=== PATIENT | female | born 1975 | race Two or more races ===

== ENCOUNTER 2024-10-01 18:00 | Emergency (ER) | payer MEDICAID, SELFPAY ==
[2024-10-01 18:30] VITALS: BP 169/99; PULSE 68; RESP 18; TEMP 36.5; O2SAT 98
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
[2024-10-01] MEDS: KETOROLAC INJ 60 MG/2 ML VIAL 30 MG IM (19:32)
[2024-10-01] MEDS: CYCLObenzaPRINE 5 MG TABLET PO (19:33)
[2024-10-01 19:57] VITALS: RESP 18
== END 2024-10-01 19:58 | disposition home or self-care (01) ==
PROVIDERS: Emergency Provider Emergency Medicine
DX: S13.4XXA Sprain of ligaments of cervical spine, initial encounter (principal); M47.812 Spondylosis without myelopathy or radiculopathy, cervical region; V49.50XA Passenger injured in collision with unspecified motor vehicles in traffic accident, initial encounter; Y92.481 Parking lot as the place of occurrence of the external cause
CPT/HCPCS: 72040; 96372; 99283; J1885; A9270

== ENCOUNTER 2025-06-04 10:17 | Emergency (ER) | payer MEDICAID, SELFPAY ==
[2025-06-04 10:19] VITALS: BP 83/50; PULSE 72; RESP 21; TEMP 36.9; O2SAT 94
--- NOTE | 2025-06-04 10:21 | EDNOTE_ITS ---
ED Allergic Reaction RME/HPI General Chief complaint: Allergic Reaction Stated complaint: Allergic reaction to keflex, low bp Time Seen by Provider: 06/04/25 10:29 Arrival date/time: 06/04/25 10:17 Limitations: no limitations RME / HPI RME / HPI narrative: 49 year old female with history of hypertension, diabetes, hyperlipidemia presents to the ED brought from the labor and delivery unit within this facility for evaluation of dizziness and near syncopal episode today. Patient states she was visiting her daughter who delivered yesterday when she suddenly began to feel dizzy, near syncope, and had an episode of vomiting. Followed by a diffuse rash. States symptoms began shortly after taking Keflex at 8am today, that was prescribed to her by PCP for tooth infection this morning. Denies having eaten this morning. Denies feeling short of breath, difficulty breathing, or mouth swelling. Denies losing consciousness. Per RN, the patients BG was 78 and given orange juice. Patient was also noted to be hypotensive, SBP in the 80s. Related Data Previous Rx's ?Medication ?Instructions ?Recorded erythromycin 5 mg/gram (0.5 %) eye 1 appl Right eye Q2 -4H WHILE AWAKE 06/03/17 ointment PRN AD #5 ea azithromycin 500 mg tablet See Rx Instructions PO .COM PLEX #6 02/12/19 tabs ibuprofen 800 mg tablet 800 mg PO TID PRN pain #30 t abs 01/24/24 cyclobenzaprine 5 mg tablet 5 mg PO TID PRN muscle spa sm #30 10/01/24 tabs ibuprofen 800 mg tablet 800 mg PO Q8H PRN pain #30 t abs 10/01/24 epinephrine 0.3 mg/0.3 mL 0.3 ml subcut .every 3-5 min s PRN 06/04/25 injection, auto-injector (EpiPen hypersensitivity reac tion #2 ea 2-Isaías) Allergies Allergy/AdvReac Type Severity Reaction Status Date / Time cephalexin Allergy Severe rash Verified 06/04/25 10:30 vomitting Penicillins Allergy Severe Anaphylaxis Verified 06/04/25 10:30 Review of Systems Review of Systems Systems Reviewed: All systems reviewed, normal except as documented Past Medical History Past Medical History CARDIAC: Positive Hypercholesterolemia and Hypertension ENDOCRINE: Positive Diabetes Mellitus Type 2 (hasn't taken medication x 1 month) Social History SMOKING STATUS: Never smoker ED Exam General Limitations: Present no limitations General appearance: Present alert and other (Mild distress) Head Head exam: Present atraumatic and other (Diffuse erythematous rash appreciated to patient's face bilateral upper extremities) Eye Eye exam: Present normal appearance, PERRL and EOMI ENT ENT exam: Present normal exam, normal oropharynx and other (Dry mucous membranes) Neck Neck exam: Present normal inspection, full ROM, trachea midline and other (No stridor); Absent tenderness Chest Chest inspection: Present normal inspection and symmetric chest wall rise Respiratory Respiratory exam: Present normal lung sounds bilaterally; Absent respiratory distress, wheezes or stridor Cardiovascular Cardiovascular exam: Present regular rate and normal rhythm Abdominal Exam Abdominal exam: Present soft; Absent distention, tenderness, guarding, rebound or rigidity Extremities Exam Extremities exam: Present other (Maculopapular erythematous rash bilateral upper extremities) Neurological Exam Neurological exam: Present alert, oriented X3, CN II-XII intact and other (No focal neurodeficits) Skin Skin exam: Present warm, dry and other (Diffuse maculopapular erythematous rash bilateral upper extremities, erythema face) Course Quality Measures none Orders Category Date Time Status EKG (ED ONLY) *Do not use* NOW Care 06/04/25 10:33 Completed EKG (ED Only) Stat Exams 06/04/25 10:32 Draft CBC Stat Lab 06/04/25 10:41 Completed CMP [Comprehensive Metabolic Panel] Stat Lab 06/04/25 10:41 Completed Drug Screen,Urine Stat Lab 06/04/25 12:08 Completed Free T4 (Free Thyroxine) Stat Lab 06/04/25 10:41 Completed HCG,Qualitative Serum Stat Lab 06/04/25 10:41 Completed TSH [Thyroid Stimulating Hormone] Stat Lab 06/04/25 10:41 Completed Troponin I Stat Lab 06/04/25 10:41 Completed UA, C/S IF [Urinalysis, C/S if Indicated] Stat Lab 06/04/25 12:08 Completed DiphenhydrAMINE INJ [Benadryl Inj] Med 06/04/25 10:22 Discontinued 25 mg IVP X1 ONE EPINEPHrine Inj [Adrenalin Inj] Med 06/04/25 10:22 Discontinued 0.3 mg IM X1 ONE Famotidine Inj [Pepcid Inj] Med 06/04/25 10:23 Discontinued 20 mg IVP X1 ONE MethylPREDNISolone.* [SoluMEDROL Inj] Med 06/04/25 10:22 Discontinued 125 mg IVP X1 ONE Ringers Lactated 1000 ml [Lactated Ringers] 1,000 ml Med 06/04/25 10:23 Discontinued IV 999 mls/hr Vital Signs Vital signs: Vital Signs Temperature 98.4 F 06/04/25 10:19 Pulse Rate 72 06/04/25 10:19 Respiratory Rate 21 H 06/04/25 10:19 Blood Pressure 83/50 L 06/04/25 10:19 Pulse Oximetry (%) 94 L 06/04/25 10:19 Oxygen Delivery Method Room Air 06/04/25 10:19 Pulse ox is 94% on room air which is adequate. Allergic Reaction MDM Narrative MDM Narrative:: Patient is a 49-year-old female medical history notable for hypertension, at the Emergency Department after having had a presyncopal episode, rash, nausea, vomiting and low blood pressure after taking cephalexin earlier today. Vital signs and exam as listed. Concern for anaphylactoid reaction, anaphylaxis, severe allergic reaction. Patient without any airway edema, tongue not elevated, uvula midline, no neck stridor. Patient does have a maculopapular erythematous rash on her upper extremities, patient does have redness to her face. Provided patient with epinephrine, steroids, and antihistamines. Also provided fluids. Also concern for presyncope. Concern for ACS arrhythmia electrolyte abnormality metabolic disturbance thyroid dysfunction among others. Ordered labs EKG. EKG performed today at 1027 in the morning notable for sinus rhythm, heart rate 67, normal intervals, nonspecific T wave changes, not a cardiac alert Labs without any acute hematologic or significant metabolic abnormality, thyroid studies unremarkable, troponin not elevated, EKG without evidence of ischemia or arrhythmia, patient is not urinalysis without evidence of infection. Drug screen negative. On multiple reevaluations patient hemodynamically stable not distress, symptoms completely resolved will discharge home close return precautions follow-up with your primary care doctor. Also advised her not to take any penicillin medications or any antibiotics related to penicillin as she has had 2 severe allergic reactions to the penicillin family. Patient will follow-up with an emergency specialist. Patient data External records reviewed:: [facility] previous records Clinical information provided by:: patient Social determinants that could affect healthcare access:: none Patient has the following chronic illnesses:: See MDM How is presenting disease/condition affected by chronic disease/condition?: uneffected by Evaluation data The following diagnostics were reviewed and interpreted by me:: lab results and EKG tracing(s) Lab and/or radiology exams considered but not ordered:: None Interpretation Summary: See MDM Medications / Prescriptions Medications or Prescriptions considered but not ordered:: None Medication administrations:: Medication Administration History Discontinued Medications Diphenhydramine HCl (Diphenhydramine Inj 50 Mg/Ml Vial) 25 mg IVP X1 ONE Stop: 06/04/25 10:23 Last Admin: 06/04/25 10:28 Dose: 25 mg Documented By: DANNY Epinephrine HCl (Epinephrine Inj 1 Mg/Ml Amp) 0.3 mg IM X1 ONE Stop: 06/04/25 10:23 Last Admin: 06/04/25 10:30 Dose: 0.3 mg Documented By: DANNY Famotidine (Famotidine Inj 10 Mg/Ml Vial 2 Ml) 20 mg IVP X1 ONE Stop: 06/04/25 10:24 Last Admin: 06/04/25 10:30 Dose: 20 mg Documented By: DANNY Lactated Ringer's (Lactated Ringers) 1,000 mls @ 999 mls/hr IV .Q1H1M ONE Stop: 06/04/25 11:23 Last Infusion: 06/04/25 13:36 Dose: Infused Documented By: Admin: 06/04/25 10:31 Dose: 999 mls/hr Documented By: DANNY Methylprednisolone Sodium Succinate (Methylprednisolone Sod Succ 62.5 Mg/Ml 2ml Vial) 125 mg IVP X1 ONE Stop: 06/04/25 10:23 Last Admin: 06/04/25 10:27 Dose: 125 mg Documented By: DANNY See above Consultations Consultation(s) initiated? (list below): No Diagnosis Most likely diagnosis given after review of the tests above:: Allergic reaction caused by a drug Anaphylaxis Admission Indicated Admission indicated?: not indicated Admission Request Was there a request for admission?: No Disposition Plan Disposition Plan: Discharge Discharge Attestation Discharge Attestation: The patient and all family members were given an opportunity to ask questions and understood the discharge instructions. Discharge instructions specifically effects, indications for sooner follow up or return to the emergency department, and the expected course of current diagnosis. Patient condition: Stable Critical Care Time Critical Care Time Critical Care Time: Yes Total Critical Care Time (min.): 35 Attestation: Total critical care time: Approximately?36?minutes Due to a high probability of clinically significant, life threatening deterioration, the patient required my highest level of preparedness to intervene emergently and I personally spent this critical care time directly and personally managing the patient. This critical care time included obtaining a history; examining the patient; pulse oximetry; ordering and review of studies; arranging urgent treatment with development of a management plan; evaluation of patient's response to treatment; frequent reassessment; and, discussions with other providers. This critical care time was performed to assess and manage the high probability of imminent, life-threatening deterioration that could result in multi-organ failure. It was exclusive of separately billable procedures and treating other patients and teaching time. Please see MDM section and the rest of the note for further information on patient assessment and treatment. Discharge Plan Plan Patient Disposition: HOME (Self Care) Prescriptions/Referrals Prescriptions/Med Rec: New epinephrine [EpiPen 2-Isaías] 0.3 mg/0.3 mL auto-injector 0.3 ml subcut .every 3-5 mins PRN (Reason: hypersensitivity reaction) Qty: 2 0RF No Action erythromycin 1 GM ointment 1 appl Right eye Q2-4H WHILE AWAKE PRN (Reason: AD) Qty: 5 1RF azithromycin 500 mg tablet See Rx Instructions .ROUTE .COMPLEX Qty: 6 0RF Rx Instructions: take 500 mg today (day 1), then 250 mg for 4 days (days 2-5) cyclobenzaprine 5 mg tablet 5 mg PO TID PRN (Reason: muscle spasm) Qty: 30 0RF ibuprofen 800 mg tablet 800 mg PO Q8H PRN (Reason: pain) Qty: 30 0RF ibuprofen 800 mg tablet 800 mg PO TID PRN (Reason: pain) Qty: 30 0RF Problem List Clinical Impression: Allergic reaction caused by a drug, Anaphylaxis Patient/Caregiver Discharge Instructions Education Materials: ED Using an Injection Pen Additional Instructions: Por favor hacer trent con javier medico de cabecera esta semana. No nigel medi camentos de la milagros de penicilinas, porque usted rey tenido dos reacciones severas a antibioticos de esta milagros. Hacer trent con un especialista de alergias. Print Language: Lithuanian Stand Alone Forms: Carola Award Info., Patient Portal Info Letter
[2025-06-04 10:26] VITALS: BMI 40.2
[2025-06-04] MEDS: MethylPREDNISolone SOD SUCC 62.5 MG/ML 2ML VIAL 125 MG IVP (10:27)
[2025-06-04 10:30] VITALS: BP 83/54; PULSE 67
[2025-06-04] MEDS: EPINEPHrine INJ 1 MG/ML AMP 0.3 MG IM (10:30)
[2025-06-04] MEDS: FAMOTIDINE INJ 10 MG/ML VIAL 2 ML 20 MG IVP (10:30)
[2025-06-04] MEDS: RINGERS LACTATED 1000 ML 1,000 ML 999 ML IV (10:31)
--- NOTE | 2025-06-04 10:32 | EKG_ITS ---
[facility] Test Date: 2025-06-04 Pat Name: TONY ECHOLS Department: Room: - Gender: Female Director Of Teaching And Learning: : 1975 Requested By: Bárbara Jc Order Number: [id number] Reading MD: Bárbara Jc Measurements Intervals [place] Rate: 67 P: 52 MO: 154 QRS: 75 QRSD: 94 T: 39 QT: 421 QTc: 446 Interpretive Statements SINUS RHYTHM LOW QRS VOLTAGE IN PRECORDIAL LEADS [QRS DEFLECTION < 1.0 mV IN CHEST LEADS] POSSIBLE ANTERIOR MYOCARDIAL INFARCTION , PROBABLY OLD [30 ms Q WAVE IN V3/V4, OR R < 0.2 mV IN V4] No previous ECG available for comparison /store/S0/[id number]
[2025-06-04 10:48] LABS: Basophils # (Auto) 0.0 Thou/mm3 (0.0-0.2); Basophils % (Auto) 0 % (0-2.5); Eosinophils # (Auto) 0.0 Thou/mm3 (0.0-0.5); Eosinophils % (Auto) 0 % (0-10); Hematocrit 39.3 % (36.0-46.0); Hemoglobin 13.2 g/dL (12.0-16.0); Immature Granulocytes Auto 0.03 Thou/mm3 (0.00-0.00); Lymphocytes # (Auto) 4.0 Thou/mm3 (1.0-4.8); Lymphocytes % (Auto) 49 % (10-50); Mean Corpuscular HGB Conc 33.6 g/dl (31.0-37.0); Mean Corpuscular Hemoglobin 29.2 pg (25.0-35.0); Mean Corpuscular Volume 87 fL (80-100); Monocytes # (Auto) 0.3 Thou/mm3 (0.0-0.8); Monocytes % (Auto) 4 % (0-12); Neutrophils # (Auto) 3.8 Thou/mm3 (1.8-7.7); Neutrophils % (Auto) 46 % (37-80); Nucleated Red Blood Cell # 0.00 Thou/mm3 (0.00-0.00); Nucleated Red Blood Cell % 0 /100 WBC (0); Platelet Count 150 Thou/mm3 (140-440); RDW Standard Deviation 37.9 fL (36.4-46.3); Red Blood Count 4.52 Miln/mm3 (4.00-5.20); White Blood Count 8.3 Thou/mm3 (3.6-11.0)
[2025-06-04 10:55] VITALS: BP 116/53; PULSE 83; RESP 18; O2SAT 100
[2025-06-04 11:22] LABS: HCG,Qualitative Serum Negative
[2025-06-04 11:28] LABS: Alanine Aminotransferase < 7 U/L (10-49); Albumin, Serum 4.1 gm/dL (3.5-5.0); Albumin/Globulin Ratio 1.9 (1.2-2.2); Anion Gap 9 (7-16); Aspartate Amino Transferase 18 U/L (0-34); BUN/Creatinine Ratio 14 Ratio (12-20); Bilirubin,Total 0.5 mg/dL (0.3-1.2); Blood Urea Nitrogen 15 mg/dL (9-23); Calcium 9.2 mg/dL (8.3-10.6); Calcium (Corrected) 9.2 mg/dL (8.5-10.1); Carbon Dioxide 25.8 mMol/L (20.0-31.0); Chloride 105 mMol/L (98-107); Creatinine (Component) 1.1 mg/dL (0.6-1.3); Estimated Creatinine Clearance 64.6 mL/min (>60); Free T4 (Free Thyroxine) 1.08 ng/dL (0.89-1.76); Globulin 2.2 gm/dL (2.3-3.5); Glucose 174 mg/dL (74-106); Osmolality,Calculated 284 (275-295); Potassium 4.0 mMol/L (3.4-5.1); Sodium 140 mMol/L (136-145); Thyroid Stimulating Hormone 3.49 uIU/mL (0.55-4.78); Total Protein 6.3 gm/dL (5.7-8.2); Troponin I < 0.002 ng/mL (0.0-0.045); eGFR > 60 See Note
[2025-06-04 11:46] LABS: Alkaline Phosphatase 61 U/L (46-116)
[2025-06-04 12:34] LABS: Collection Type, Urine Clean Catch
[2025-06-04 12:45] LABS: Amphetamine/Methamp Scrn,U Negative (Negative); Barbiturate Screen,Urine Negative (Negative); Benzodiazepines Screen,Urine Negative (Negative); Benzoylecgonine Screen, Ur Negative (Negative); Fentanyl Screen,Urine Negative (Negative); Opiate Screen,Urine Negative (Negative); THC Screen,Urine Negative (Negative)
[2025-06-04 12:52] LABS: Bilirubin,Urine Negative (Negative); Blood,Urine Negative (Negative); Clarity,Urine Clear (Clear/Hazy); Color,Urine Lt-Yellow (Lt Yel-Yel); Culture Indicated,Urine Not Indicated; Glucose, Urine Negative (Negative); Hyaline Casts,Urine < 1 /hpf (0-1); Ketones,Urine Negative (Negative); Leukocyte Esterase,Urine Negative (Negative); Nitrite,Urine Negative (Negative); PH,Urine 6.5 (5.0-7.0); Protein,Urine Trace (Neg - Trace); RBC,Urine 1 /hpf (0-3); Specific Gravity,Urine 1.018 (1.001-1.035); Squamous Epithelial Cell,Urine 2 /hpf (0-5); Urobilinogen,Urine Negative mg/dL (0.0-1.0); WBC,Urine 3 /hpf (0-5)
[2025-06-04 13:00] VITALS: BP 107/58; PULSE 84; RESP 16; TEMP 36.7; O2SAT 98
[2025-06-04 13:37] VITALS: BP 110/69; PULSE 85; RESP 16; TEMP 36.4; O2SAT 95
== END 2025-06-04 13:35 | disposition home or self-care (01) ==
LOC: SERX 10:55
PROVIDERS: Emergency Provider Emergency Medicine
DX: T88.6XXA Anaphylactic reaction due to adverse effect of correct drug or medicament properly administered, initial encounter (principal); T36.1X5A Adverse effect of cephalosporins and other beta-lactam antibiotics, initial encounter; I95.9 Hypotension, unspecified; R94.31 Abnormal electrocardiogram [ECG] [EKG]; I10 Essential (primary) hypertension; E78.00 Pure hypercholesterolemia, unspecified
CPT/HCPCS: 36415; 80053; 80307; 81001; 84439; 84443; 84484; 84703; 85025; 93005; 96361; 96372; 96374; 96375; 99284; J0166; J1200; J2919; J3490; J7120